=== PATIENT | female | born 1980 | race Two or more races ===

== ENCOUNTER 2022-01-18 13:51 | Emergency (ER) | payer OTHER ==
[~2022-01-18] VITALS: Ht 157.5 cm; Wt 54.4 kg
[2022-01-18] MEDS ORDERED: CLONAZEPAM1 MG PO (14:02)
== END 2022-01-18 19:55 | disposition home or self-care (01) ==
LOC: ER 13:51
DX: F13.239 Sedative, hypnotic or anxiolytic dependence with withdrawal, unspecified (principal); F10.129 Alcohol abuse with intoxication, unspecified